=== PATIENT | male | born 1975 | race Hispanic/Latino ===

== ENCOUNTER 2022-03-03 23:24 | Observation (INO) | payer OTHER ==
[~2022-03-03] VITALS: Ht 167.6 cm; Wt 74.8 kg
[2022-03-04] MEDS ORDERED: NITROGLYCERIN 2% OINT 1 GM PKT TOP ONE
[2022-03-04] MEDS ORDERED: HYDRALAZINE HCL 20 MG/ML VIAL IV ONE
[2022-03-04] MEDS ORDERED: ACETAMINOPHEN 325 MG TAB PO ONE
[2022-03-04] MEDS ORDERED: HYDRALAZINE HCL 20 MG/ML VIAL ONE (00:11)
[2022-03-04] MEDS ORDERED: NITROGLYCERIN 2% OINT 1 GM PKT ONE (00:12)
[2022-03-04] MEDS ORDERED: ACETAMINOPHEN 325 MG TAB ONE (00:12)
[2022-03-04] MEDS ORDERED: ACETAMINOPHEN 325 MG TAB PO PRN (00:45)
[2022-03-04] MEDS ORDERED: ZOLPIDEM TARTRATE 5 MG TAB PO PRN (00:45)
[2022-03-04] MEDS ORDERED: ASPIRIN 81 MG CHEW TAB PO ONE ×2 (00:45→13:45)
[2022-03-04] MEDS ORDERED: ENALAPRILAT IV INJ 1.25 MG/ML VIAL IV PRN (00:45)
[2022-03-04] MEDS ORDERED: Morphine 4mg INJECTION 4 MG/ML INJ IV STA (00:48)
[2022-03-04] MEDS ORDERED: ONDANSETRON HCL INJ 2MG/ML 2ML 2 MG/ML VIAL ONE (00:56)
[2022-03-04] MEDS ORDERED: ASPIRIN 325 MG TAB ONE (00:56)
[2022-03-04] MEDS ORDERED: Morphine 4mg INJECTION 4 MG/ML INJ ONE (00:56)
[2022-03-04] MEDS ORDERED: ONDANSETRON HCL INJ 2MG/ML 2ML 2 MG/ML VIAL IV ONE (01:00)
[2022-03-04] MEDS ORDERED: LISINOPRIL-HCT1 EACH (03:35)
[2022-03-04] MEDS ORDERED: METOPROLOL SUCC50 MG PO (03:35)
[2022-03-04 03:39] VITALS: BP 147/96
[2022-03-04] MEDS: LOSARTAN POTASSIUM 25 MG TAB PO SCH ×2 (04:03→09:17)
[2022-03-04 04:59] VITALS: BP 147/96
[2022-03-04 08:06] LABS: CREATINE KINASE 84 IU/L (30-200)
[2022-03-04 08:31] VITALS: BP 134/97
[2022-03-04 08:41] LABS: CHOL/HDL RATIO 3.7 (3.9-4.7)
[2022-03-04] MEDS ORDERED: FAMOTIDINE 20 MG/2 ML VIAL IV SCH (09:00)
[2022-03-04] MEDS ORDERED: METOPROLOL SUCCINATE 50 MG TAB XL PO SCH (09:00)
[2022-03-04 12:06] VITALS: BP 142/92
[2022-03-04 16:00] VITALS: BP 152/98
[2022-03-04 16:25] LABS: CREATINE KINASE 77 IU/L (30-200)
[2022-03-04] MEDS ORDERED: ASPIRIN81 MG PO (17:41)
[2022-03-05] MEDS ORDERED: METOPROLOL SUCCINATE 50 MG TAB XL PO SCH (09:00)
== END 2022-03-04 18:05 | disposition home or self-care (01) ==
LOC: FSED 23:42 → ERHOLD 03-04 00:42 → MED/SURG 03-04 03:10
PROVIDERS: ADMIT Internal Medicine; ATTEND Internal Medicine
DX: I16.1 Hypertensive emergency (principal); R07.89 Other chest pain; I10 Essential (primary) hypertension; Z20.822 Contact with and (suspected) exposure to COVID-19
CPT/HCPCS: 36415; 71046; 80053; 80061; 80307; 81003; 82550; 82553; 83036; 84443; 84484; 85025; 85379; 93005; 93306; 99284; G0378; J0360; J2270; J2405; U0002

== ENCOUNTER 2023-09-28 16:20 | Emergency (ER) | payer OTHER ==
[~2023-09-28] VITALS: Ht 167.6 cm; Wt 75.8 kg
[~2023-09-28 16:20] MED LIST: ASPIRIN81 MG PO; LISINOPRIL-HCT1 EACH; METOPROLOL SUCC50 MG PO
[2023-09-28] MEDS ORDERED: TRAMADOL HCL 50 MG TAB PO ONE (16:45)
[2023-09-28] MEDS ORDERED: LISINOPRIL 10 MG TAB PO ONE (16:45)
[2023-09-28] MEDS ORDERED: TRAMADOL HCL 50 MG TAB ONE (16:50)
[2023-09-28] MEDS ORDERED: HYDRALAZINE HCL 25 MG TAB ONE (18:08)
[2023-09-28 18:14] VITALS: BP 175/104
[2023-09-28] MEDS ORDERED: HYDRALAZINE HCL 25 MG TAB PO ONE (18:15)
[2023-09-28 18:46] VITALS: O2SAT 100
== END 2023-09-28 19:00 | disposition home or self-care (01) ==
LOC: FSED 16:27
DX: S22.42XA Multiple fractures of ribs, left side, initial encounter for closed fracture (principal); S20.212A Contusion of left front wall of thorax, initial encounter; W11.XXXA Fall on and from ladder, initial encounter; Y92.89 Other specified places as the place of occurrence of the external cause; I10 Essential (primary) hypertension
CPT/HCPCS: 71250; 99283